=== PATIENT | male | born 1975 | race Caucasian/White ===

== ENCOUNTER 2023-06-21 19:01 | Emergency (ER) | payer OTHER ==
[2023-06-21] MEDS ORDERED: Diphtheria,Pertussis(Acell),Tetanus Vaccine 0.5 ML Syringe IM ONE (20:00)
== END 2023-06-21 20:25 | disposition critical access hospital (66) ==
LOC: JP.ED 19:01
DX: S60.351A Superficial foreign body of right thumb, initial encounter (principal); W45.8XXA Other foreign body or object entering through skin, initial encounter; Z88.0 Allergy status to penicillin; Z79.84 Long term (current) use of oral hypoglycemic drugs; Z79.899 Other long term (current) drug therapy
CPT/HCPCS: 90471; 90715; 99282-25

== ENCOUNTER 2025-02-26 03:09 | Emergency (ER) | payer MEDICAID, OTHER ==
[2025-02-26] MEDS: Sodium Chloride 0.9% 1,000 ML IV ONE (04:05)
[2025-02-26 09:29] LABS: A/G RATIO 1.2 (1.2-2.2); ALANINE AMINOTRANSFERASE,ALT 82 U/L (12-78); ALKALINE PHOSPHATASE 80 U/L (46-116); ANION GAP 18.2 mmol/L (5.0-14.0); ASPARTATE AMNIOTRANSFERASE,AST 29 U/L (15-37); BILIRUBIN TOTAL 0.3 mg/dL (0.2-1.0); BLOOD UREA NITROGEN,BUN 25 mg/dL (7-18); CALCIUM 8.9 mg/dL (8.5-10.1); CARBON DIOXIDE,CO2 24 mmol/L (21-32); CHLORIDE,CL 98 mmol/L (100-108); CREATININE 1.7 mg/dL (0.8-1.3); ESTIMATED GFR 48 mL/min (>60); GLUCOSE RANDOM 290 mg/dL (74-106); POTASSIUM,K 4.2 mmol/L (3.6-5.2); PROTEIN TOTAL,TP 7.3 g/dL (6.4-8.2); SODIUM,NA 136 mmol/L (140-148)
[2025-02-26 09:30] LABS: HEMATOCRIT 43.5 % (38.4-49.7); HEMOGLOBIN 15.3 g/dL (12.9-16.9); MEAN CORPUSCULAR HEMOGLOBIN 31.2 pg (31.6-35.5); MEAN CORPUSCULAR HGB CONC 35.2 g/dL (31.6-35.5); MEAN CORPUSCULAR VOLUME 88.6 fL (81.4-99.0); PLATELET COUNT,PLT 195 K/uL (130-375); RED BLOOD CELL COUNT 4.91 M/uL (4.14-5.76); TROPONIN I HIGH SENSITIVITY < 4.0 pg/mL (<=60.3); WHITE BLOOD CELL COUNT,WBC 4.9 K/uL (3.2-11.0)
[2025-02-26 09:31] LABS: BASOPHILS ABSOLUTE AUTO 0.03 K/uL (0.00-0.10); BASOPHILS PERCENT AUTO 0.6 % (0.1-1.3); EOSINOPHILS ABSOLUTE AUTO 0.03 K/uL (0.00-0.40); EOSINOPHILS PERCENT AUTO 0.6 % (0.0-5.4); IMMATURE GRAN ABSOLUTE AUTO 0.05 K/uL (0.00-0.23); LYMPHOCYTES ABSOLUTE AUTO 1.11 K/uL (0.8-3.3); LYMPHOCYTES PERCENT AUTO 22.7 % (11.4-47.7); MONOCYTES ABSOLUTE AUTO 0.36 K/uL (0.20-0.90); MONOCYTES PERCENT AUTO 7.3 % (3.3-12.6); NEUTROPHILS ABSOLUTE AUTO 3.32 K/uL (1.0-7.6); NEUTROPHILS PERCENT AUTO 67.8 % (40.0-78.1)
== END 2025-02-26 05:25 | disposition home or self-care (01) ==
LOC: JP.ED 03:09
DX: M25.461 Effusion, right knee (principal); E11.65 Type 2 diabetes mellitus with hyperglycemia; I10 Essential (primary) hypertension; Z88.8 Allergy status to other drugs, medicaments and biological substances
CPT/HCPCS: 36415; 73562; 80053; 84484; 85025; 93005; 93010; 96360; 99284; J7030